=== PATIENT | male | born 1975 | race Caucasian/White ===

== ENCOUNTER 2018-07-15 08:06 | Emergency (ER) | payer SELFPAY ==
[~2018-07-15] VITALS: Ht 180.3 cm; Wt 99.3 kg
--- OUTSIDE RECORDS SUMMARY | 2018-07-15 08:14 | XMS REPORT | Continuity of Care Document ---
Author Organization Unknown Address Unknown Allergies There is no data. Medications There is no data. Problems There is no data. Procedures There is no data. Results There is no data. Encounters ACCT No. Visit Date/Time Discharge Status Pt. Type Provider Facility Loc./Unit Complaint [id number] 07/12/2018 11:00:00 [facility]
--- NOTE | 2018-07-15 08:25 | NUR ---
Marked around border of cellulitis and dated on back of shoulder.
[2018-07-15] MEDS ORDERED: CLINDAMYCIN 600 MG/50 ML IVPB 50 ML IV ONE (08:45)
[2018-07-15] MEDS ORDERED: CEPH500T PO (09:07)
--- NOTE | 2018-07-15 09:10 | ED General ---
General Chief Complaint: Bite-Animal/Human/Insect Stated Complaint: SPIDER BITE ON LT SHOULDER Nursing Triage Note: Pt arrived by private vehicle for chief complaint of spider bite. Pt got bit morning at 0230. Pt went to see clinic Sunday and they put him on Bactrim and steroids. The bite has spread to left side of chest, neck and over left shoulder. Pt stated it used to be sore, but it just itches now. Nursing Sepsis Screen: No Definite Risk History of Present Illness Date Seen by Provider: July 15, 2018 Time Seen by Provider: 08:45 Initial Comments This is a 42 y/o m who presents to the ED for evaluation of rash. 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 Was seen in clinic on Sunday and started on Bactrim and Prednisone for erythema/rash involving only the superior aspect of the L shoulder. Pt reports initial improvement but then today had extension of rash to chest. Pt reports mild pain, but largely itchy. no fever, no nausea, no vomiting. Compliant with Bactrim. No history of MRSA. Allergies and Home Medications Allergies Coded Allergies: No Known Drug Allergies (Unverified , 07/15/18) Patient Home Medication List Home Medication List Reviewed: Yes Review of Systems Review of Systems Constitutional: No chills, No fever, No weakness Respiratory: No short of breath Cardiovascular: No chest pain Gastrointestinal: No abdominal pain, No nausea, No vomiting Musculoskeletal: No joint pain Skin: change in color, pruritus, rash All Other Systems Reviewed Negative Unless Noted: Yes Past Ufcbuvs-Rirmap-Klotrv Hx Patient Social History Alcohol Use: Occasionally Uses Recreational Drug Use: No Smoking Status: Never a Smoker 2nd Hand Smoke Exposure: No Recent Foreign Travel: No Contact w/Someone Who Travel: No Recent Infectious Disease Expo: No Recent Hopitalizations: No Physical Abuse: No Sexual Abuse: No Mistreated: No Fear: No Seasonal Allergies Seasonal Allergies: No Past Medical History Surgeries: Yes Adenoidectomy, Tonsillectomy Respiratory: No Cardiac: No Neurological: No Genitourinary: No Gastrointestinal: No Musculoskeletal: No Endocrine: No HEENT: No Cancer: No Psychosocial: No Integumentary: No Blood Disorders: No Physical Exam Vital Signs Vital Signs - First Documented 07/15/18 08:15 Temp 97.0 Pulse 87 Resp 18 B/P (MAP) 141/91 (108) Pulse Ox 99 O2 Delivery Room Air Capillary Refill : Less Than 3 Seconds Height, Weight, BMI Height: 5'11.00" Weight: 219lbs. 0oz. 99.264614fj; BMI Method:Stated General Appearance: No Apparent Distress, WD/WN, Other (non-toxic appearing) HEENT: PERRL/EOMI Neck: Full Range of Motion Respiratory: No Respiratory Distress Cardiovascular: Normal Peripheral Pulses Back: No Decreased Range of Motion Extremity: Normal Capillary Refill, Normal Inspection, Normal Range of Motion Neurologic/Psychiatric: Alert, Oriented x3, No Motor/Sensory Deficits, Normal Mood/Affect Skin: Other (No area of blanchable/warm to touch erythema extending from Left shoulder to andterior left half of the L side of the torso. Some are of puncture noted too L shoulder region. No palpable fluctuance or fluid collection) Progress/Results/Core Measures Suspected Sepsis Recent Fever Within 48 Hours: No Infection Criteria Present: Suspected New Infection New/Unexplained Altered Menta: No Sepsis Screen: No Definite Risk SIRS Temperature:97.0 Pulse: 87 Respiratory Rate: 18 Blood Pressure 141 /91 Mean: 108 Results/Orders My Orders Orders - KLEBER DAHL DO Clindamycin 600 Mg/50 Ml Ivpb (Cleocin P (07/15/18 08:45) Medications Given in ED Current Medications Medications Dose Ordered Sig/Marvin Route Start Time Stop Time Status Last Admin Dose Admin Clindamycin Phosphate/Dextrose 50 ml @ 100 mls/hr ONCE ONCE IV 07/15/18 08:45 07/15/18 09:14 07/15/18 08:50 100 MLS/HR Vital Signs/I&O 07/15/18 08:15 Temp 97.0 Pulse 87 Resp 18 B/P (MAP) 141/91 (108) Pulse Ox 99 O2 Delivery Room Air Capillary Refill : Less Than 3 Seconds Blood Pressure Mean: 108 Progress Note : Progress Note Pt failing on Bactrim. Suspect worsening of rash 2/2 to no strep coverage and pt inappropriately placed on steroids. pt does not have any risks factors for MRSA. Site of original bite has no surrounding tissue decay or other skin changes concerning for brown recluse. He has stable vital signs. No abscess formation. no complicating chronic co-mobidities and appropriate for continued outpt trial with appropriate strep coverage. pt given clindamycin IV x 1. First dose of oral keflex and 7 days of oral keflex. Pt advised to be seen by PCP tomorrow. involved area was marked and dated. ER return precautions given. Pt verbalized understanding. All questions answered. Departure Impression Primary Impression: Cellulitis Disposition: 01 HOME, SELF-CARE Condition: Stable Departure-Patient Inst. Decision time for Depature: 09:30 Referrals: ERMELINDA HINTON MD (PCP/Family) Primary Care Physician Patient Instructions: Cellulitis and Erysipelas (Skin Infections) Add. Discharge Instructions: Please read the attached handouts. Please take the entire course of antibiotics. STOP THE STEROIDS. CONTINUE THE BACTRIM. Please take another 3 doses of Keflex today. Ibuprofen/Tylenol for pain. Return to the ER if your symptoms worsen or you have any other concerns. All discharge instructions reviewed with patient and/or family. Voiced understanding. Scripts Cephalexin (Cephalexin) 500 Mg Tablet 500 MG PO QID for 7 Days, #28 TAB 0 Refills Prov: KLEBER DAHL DO 07/15/18 KLEBER DAHL DO July 15, 2018 09:10
[2018-07-15] MEDS ORDERED: CEPHALEXIN 250 MG (KEFLEX) CAP PO ONE (09:15)
[2018-07-15 09:25] VITALS: BP 126/88
== END 2018-07-15 09:25 | disposition home or self-care (01) ==
LOC: ER FS 08:08
DX: L03.114 Cellulitis of left upper limb (principal); Z90.89 Acquired absence of other organs
CPT/HCPCS: 96365